=== PATIENT | female | born 1950 | race African-American/Black ===

== ENCOUNTER 2023-07-18 09:15 | Outpatient (REF) | payer MEDICARE, SELFPAY ==
--- NOTE | ~2023-07-18 | XR_ITS ---
EXAMINATION: XR KNEE, BILATERAL CLINICAL INFORMATION: Pain in bilateral knees. Radiopaque positioning sponge visible and sunrise views per technologist. COMPARISON: None available. TECHNIQUE: 3 views of each knee. FINDINGS: LEFT KNEE: Moderate joint effusion. Status post left knee total arthroplasty. Hardware appears intact. Alignment maintained. RIGHT KNEE: Moderate joint effusion. Status post right knee total arthroplasty. Hardware appears intact. Alignment maintained. There is asymmetric widening at the lateral aspect of the patellofemoral joint on the sunrise view. A small ossicle is seen anterior to the medial aspect of the patella on the sunrise view. XR/XR knee LT 3V IMPRESSION: 1. Status post bilateral knee total arthroplasty. Hardware appears intact. 2. Asymmetric widening at the lateral aspect of the right patellofemoral joint on the sunrise view. 3. Correlation with clinical exam and surgical history recommended.
--- NOTE | ~2023-07-18 | XR_ITS ---
EXAMINATION: XR KNEE, BILATERAL CLINICAL INFORMATION: Pain in bilateral knees. Radiopaque positioning sponge visible and sunrise views per technologist. COMPARISON: None available. TECHNIQUE: 3 views of each knee. FINDINGS: LEFT KNEE: Moderate joint effusion. Status post left knee total arthroplasty. Hardware appears intact. Alignment maintained. RIGHT KNEE: Moderate joint effusion. Status post right knee total arthroplasty. Hardware appears intact. Alignment maintained. There is asymmetric widening at the lateral aspect of the patellofemoral joint on the sunrise view. A small ossicle is seen anterior to the medial aspect of the patella on the sunrise view. XR/XR knee RT 3V IMPRESSION: 1. Status post bilateral knee total arthroplasty. Hardware appears intact. 2. Asymmetric widening at the lateral aspect of the right patellofemoral joint on the sunrise view. 3. Correlation with clinical exam and surgical history recommended.
== END 2023-07-18 09:16 | disposition home or self-care (01) ==
LOC: HO.HOSX 09:15
PROVIDERS: Visit Provider Orthopaedic Surgery
DX: M25.561 Pain in right knee (principal); M25.562 Pain in left knee
CPT/HCPCS: 73562; 99212

== ENCOUNTER 2023-07-18 11:19 | Outpatient (AMB) | payer MEDICARE, SELFPAY ==
--- NOTE | 2023-07-18 11:46 | MHC.OFFVIS ---
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 Wisdom. She reports she had surgery of Right knee was April of 2017 and Left knee in February of 2019 and would like to follow up. She states her knees are feeling stiff. She states she fell out of chair which caused some discomfort in her knees on 12/24/2022. She denies any other injuries. She denies any locking or giving way. Allergies aspirin Allergy (Unknown, Verified 07/26/16 00:00) ofloxacin Allergy (Unknown, Verified 07/26/16 00:00) penicillin V Allergy (Unknown, Verified 07/26/16 00:00) Sulfa (Sulfonamide Antibiotics) Allergy (Unknown, Verified 07/26/16 00:00) bees Allergy (Unknown, Uncoded 07/26/16 00:00) Codeine Phosphate Allergy (Unknown, Uncoded 07/26/16 00:00) dust Allergy (Unknown, Uncoded 07/26/16 00:00) peanuts Allergy (Unknown, Uncoded 07/26/16 00:00) pollen Allergy (Unknown, Uncoded 07/26/16 00:00) shell fish Allergy (Unknown, Uncoded 07/26/16 00:00) Medication List - Last Reconciled 07/18/23 by John Wisdom MD ergocalciferol (vitamin D2) 1,250 mcg PO QWEEK hydrochlorothiazide 12.5 mg PO DAILY levothyroxine (Levoxyl) 88 mcg PO DAILY pantoprazole 40 mg PO DAILY [facility] Surgical History (Updated 07/18/23 @ 12:11 by More Benjamin CMA) Hx of right knee surgery (~04/2017) Hx of left knee surgery (~03/08/19) Social History (Updated 07/18/23 @ 12:07 by More Benjamin CMA) Patient Tobacco Use Status: Never used Tobacco Physical Exam Const Other: Well-nourished well-developed very friendly female awake alert and oriented x3 in no acute distress Extrem Other: Bilateral lower extremity examination shows good capillary refill, no skin lesions noted, normal sensation light touch Bilateral knee examination shows that the surgical incisions are well healed, no erythema, full active extension and flexion to 120 degrees, her patellae track well, no instability Results Reviewed Results Reviewed: X-rays of the patient's bilateral knee show total knee arthroplasties in good position with no signs of loosening, no acute bony abnormalities Assessment & Plan Assessment & Plan (1) Right knee pain: Code(s): M25.561 - Pain in right knee (2) Left knee pain: Code(s): M25.562 - Pain in left knee Plan Ms. Tyler continues to do well after undergoing bilateral total knee replacement surgeries in spite of her fall last year. She does not appear to have suffered any damage to her total knee arthroplasties. She will continue with her home exercise program. She does know to take antibiotics before any dental work. She will contact me prior to her annual follow-up appointment should any questions or concerns arise. Feel free to call me at any time should questions regarding her orthopedic management arise. I spent 22 minutes in reviewing the patient's records and imaging studies, seeing the patient and documenting in the medical record. Orders: Orders XR knee LT 3V Today M25.562 - Pain in left knee XR knee RT 3V Today M25.561 - Pain in right knee Coding Level of Care Code Est Pt Level 2 (87604) Diagnoses Right knee pain M25.561 Left knee pain M25.562
== END 2023-07-18 12:34 | disposition home or self-care (01) ==
PROVIDERS: PCP Internal Medicine; Visit Provider Orthopaedic Surgery
DX: M25.561 Pain in right knee (principal); M25.562 Pain in left knee; Z96.653 Presence of artificial knee joint, bilateral; W19.XXXA Unspecified fall, initial encounter
CPT/HCPCS: 99213

== ENCOUNTER 2025-05-06 11:05 | Outpatient (AMB) | payer MEDICARE, SELFPAY ==
--- OUTSIDE RECORDS SUMMARY | 2023-12-07 10:30 | XMS_ITS ---
Author Organization [facility], [place] Address [address] [facility] [facility] [address] [place] [address] Care Team Providers Care Crime Scene Evidence Technician Name Role Phone Migration, Provider Unavailable Unavailable REASON FOR VISIT Follow-up Appt Encounters Encounter Location Date Provider Diagnosis [facility], [address] [place] [phone] 12/07/2023 Provider Migration Plan Of Treatment No Information Progress Notes * KRYSTAL LEONB:1950 ( 74 yo Other)Acc No.[id number]:12/07/2023 Progress Notes Patient: Rosaura CARDOZAPAVEL ROSS Provider: Kadie Guerrero :1950 A ge:73 Y S ex:Unknown Date:12/07/2023 Address:[address] [place], [place] [phone] Subjective: * Chief Complaints: * F ollow-up Appt * Ocular Surgical History: Objective: Vision Examination: * Electronic signature of Prov ider Migration on 05/06/2025 at 02:35 PM EST Sign off status: Pending * Provider: Kadie morales Migration Date: 0 12/07/2023 Generated for Dolores kay/Jorge/eTransmitting on: 1 07/07/2024 02:35 PM EST
--- OUTSIDE RECORDS SUMMARY | 2024-04-29 05:45 | XMS_ITS ---
Author Organization [facility], [place] Address [address] [facility] [address] [place] [address] Care Team Providers Care Line Controller Name Role Phone Migration, Provider Unavailable Unavailable REASON FOR VISIT Follow-up Appt Encounters Encounter Location Date Provider Diagnosis [facility], [address] [place] [phone] 04/29/2024 Provider Migration Plan Of Treatment No Information Progress Notes * KRYSTAL LEONB:1950 ( 74 yo Other)Acc No.[id number]:04/29/2024 Progress Notes Patient: Rosaura CARDOZAVANDANA PAVEL Provider: Kadie Guerrero :1950 A ge:73 Y S ex:Unknown Date:04/29/2024 Address:[address] [place], [place] [phone] Subjective: * Chief Complaints: * F ollow-up Appt * Ocular Surgical History: Objective: Vision Examination: * Electronic signature of Prov ider Migration on 05/06/2025 at 02:35 PM EST Sign off status: Pending * Provider: Kadie morales Migration Date: 06/30/2023 Generated for Dolores kay/Jorge/eTransmitting on: 07/07/2024 02:35 PM EST
--- OUTSIDE RECORDS SUMMARY | 2024-05-02 05:45 | XMS_ITS ---
Author Organization [facility], [place] Address [address] [facility] [address] [place] [address] Care Team Providers Care Bisque Kiln Placer Name Role Phone Migration, Provider Unavailable Unavailable REASON FOR VISIT Follow-up Appt Encounters Encounter Location Date Provider Diagnosis [facility], [address] [place] [phone] 05/02/2024 Provider Migration Plan Of Treatment No Information Progress Notes * KRYSTAL LEONB:1950 ( 74 yo Other)Acc No.[id number]:05/02/2024 Progress Notes Patient: Rosaura CARDOZAVANDANA PAVEL Provider: Kadie Guerrero :1950 A ge:73 Y S ex:Unknown Date:05/02/2024 Address:[address] [place], [place] [phone] Subjective: * Chief Complaints: * F ollow-up Appt * Ocular Surgical History: Objective: Vision Examination: * Electronic signature of Prov ider Migration on 05/06/2025 at 02:36 PM EST Sign off status: Pending * Provider: Kadie morales Migration Date: 07/03/2023 Generated for Dolores kay/Jorge/eTransmitting on: 07/07/2024 02:36 PM EST
--- OUTSIDE RECORDS SUMMARY | 2024-08-28 08:00 | XMS_ITS ---
Author Organization [facility], [place] Address [address] [facility] [place] [facility] [address] [place] [address] Care Team Providers Care Field Assembly Supervisor Name Role Phone Julian Chin Unavailable [phone] REASON FOR VISIT Follow-up Appt Encounters Encounter Location Date Provider Diagnosis [facility], [address] [place] [phone] 08/28/2024 Julian Chin Plan Of Treatment No Information Progress Notes * KRYSTAL LEONB:1950 ( 74 yo Other)Acc No.[id number]:08/28/2024 Progress Notes Patient: PAVEL GUSTAFSON Provider: Jd PRATT :1950 A ge:74 Y S ex:Unknown Date:08/28/2024 Address:[address] [place], [place] [phone] Subjective: * Chief Complaints: * F ollow-up Appt * Ocular Surgical History: Objective: Vision Examination: * Electronic signature of Luis Chin PA-C on 05/06/2025 at 02:35 PM EST Sign off status: Pending * Provider: Jd PRATT Date: 0 08/28/2024 Generated for Alinai eliza/Jorge/eTransmitting on: 1 07/07/2024 02:35 PM EST
--- OUTSIDE RECORDS SUMMARY | 2024-09-11 08:00 | XMS_ITS ---
Author Organization [facility], [place] Address [address] [facility] [address] [place] [address] Care Team Providers Care Day Care Worker Name Role Phone Julian Chin Unavailable [phone] REASON FOR VISIT Follow-up Appt Encounters Encounter Location Date Provider Diagnosis [facility], [address] [place] [phone] 09/11/2024 Julian Chin Plan Of Treatment No Information Progress Notes * KRYSTAL LEONB:1950 ( 74 yo Other)Acc No.[id number]:09/11/2024 Progress Notes Patient: PAVEL GUSTAFSON Provider: Jd PRATT :1950 A ge:74 Y S ex:Unknown Date:09/11/2024 Address:[address] [place], [place] [phone] Subjective: * Chief Complaints: * F ollow-up Appt * Ocular Surgical History: Objective: Vision Examination: * Electronic signature of Luis Chin PA-C on 05/06/2025 at 02:36 PM EST Sign off status: Pending * Provider: Jd PRATT Date: 0 09/11/2024 Generated for Alinai ng/Fajune/eTransmitting on: 1 07/07/2024 02:36 PM EST
--- OUTSIDE RECORDS SUMMARY | 2024-09-25 08:00 | XMS_ITS ---
Author Organization [facility], [place] Address [address] [address] [place] [address] Care Team Providers Care Barrel Charrer Helper Name Role Phone Julian Chin Unavailable [phone] REASON FOR VISIT Follow-up Appt Encounters Encounter Location Date Provider Diagnosis [facility], [address] [place] [phone] 09/25/2024 Julian Chin Plan Of Treatment No Information Progress Notes * KRYSTAL LEONB:1950 ( 74 yo Other)Acc No.[id number]:09/25/2024 Progress Notes Patient: PAVEL GUSTAFSON Provider: Jd PRATT :1950 A ge:74 Y S ex:Unknown Date:09/25/2024 Address:[address] [place], [place] [phone] Subjective: * Chief Complaints: * F ollow-up Appt * Ocular Surgical History: Objective: Vision Examination: * Electronic signature of Luis Chin PA-C on 05/06/2025 at 02:35 PM EST Sign off status: Pending * Provider: Jd PRATT Date: 0 09/25/2024 Generated for Alinai ng/Fajune/eTransmitting on: 1 07/07/2024 02:35 PM EST
--- NOTE | 2025-05-06 11:13 | MHC.OFFVIS ---
Intake Visit Reasons: Migranes Allergies aspirin Allergy (Unknown, Verified 05/02/25 13:35) Unknown doxycycline Allergy (Unknown, Verified 05/02/25 13:35) Unknown ofloxacin Allergy (Unknown, Verified 05/02/25 13:35) Unknown penicillin V Allergy (Unknown, Verified 05/02/25 13:35) Unknown Sulfa (Sulfonamide Antibiotics) Allergy (Unknown, Verified 05/02/25 13:35) Unknown bees Allergy (Unknown, Uncoded 05/02/25 13:35) Unknown Codeine Phosphate Allergy (Unknown, Uncoded 05/02/25 13:35) Unknown dust Allergy (Unknown, Uncoded 05/02/25 13:35) Unknown peanuts Allergy (Unknown, Uncoded 05/02/25 13:35) Unknown pollen Allergy (Unknown, Uncoded 05/02/25 13:35) Unknown shell fish Allergy (Unknown, Uncoded 05/02/25 13:35) Unknown Medication List - Last Reconciled 05/06/25 by Zulema Centeno MD ergocalciferol (vitamin D2) units PO .weekly hydrochlorothiazide 12.5 mg PO DAILY levothyroxine (Levoxyl) 88 mcg PO DAILY pantoprazole 40 mg PO DAILY HPI Comments Details: This is a 74-year-old woman with history of Graves disease treated with ablation currently on replacement therapy, mild hypertension, osteoarthritis status post bilateral total knee replacements in 2017 and 2019, migraine headaches since childhood that occur between 4 to 6 times a year. The migraines are associated with a visual aura. She also gets ocular migraines without headache. The ocular migraines occur every 1-2 months and last 15 minutes. She has had multiple eye exams which are normal. For her migraines she takes 500 mg of extra strength Tylenol and goes to sleep in the headache is gone. She is very sensitive to all medications and can not use most medicines and has found the Tylenol to be effective and even in the 500 mg of Tylenol knocks her out and she is sleeping. She has a lot of medication sensitivity. She is status post hysterectomy and cholecystectomy. There is a family history of thyroid disorder and migraines on her mother's side and bronchial asthma in the father side. [facility] Medical History (Updated 05/06/25 @ 11:29 by Zulema Centeno MD) Graves disease Migraine Surgical History (Updated 07/18/23 @ 12:11 by More Benjamin CMA) Hx of right knee surgery (~04/2017) Hx of left knee surgery (~03/08/19) Social History (Updated 07/18/23 @ 12:07 by More Benjamin CMA) Patient Tobacco Use Status: Never used Tobacco Review of Systems Const Reports headache(s) Eyes Details: Ocular migraine with flashing multi colored lights ENT Reports otalgia, Reports headache(s) and Reports sinus pain GI Reports abdominal pain Neuro Reports headache(s) Physical Exam Neuro Other: Mini Mental Status Exam Level of Consciousness:?Alert.? Orientation:?Knows correct year, month, date, day and season.?Knows correct city, county and state. Knows correct location and floor.? Registration:?Able to register 3 objects.? Attention:?Serial 7's performed?? accurately.? Recall:?Able to recall 3 out of 3 objects.? Language:?Normal spontaneous speech, fluency, repetition, naming, comprehension, reading, and writing.? ?? Total Score:?30/30.? Neurological Abnormal neurological findings:??None. ? Mental Status:?Alert and oriented X 3.?Normal attention, orientation, memory, and affect.? Cranial Nerves:?Pupils are equal, round and reactive to light. Fundoscopy shows normal disc bilaterally. External ocular muscles are intact. Visual stern are full, no ptosis. Face is symmetrical, no facial weakness or droop. Facial sensations are normal.? Tongue protrudes in midline. Palate elevates symmetrically. Shoulder?? shrugging is normal.? Motor Examination:?Normal muscle tone, bulk and strength.?No atrophy or fasciculations.?No drift of the extended upper extremities.?Deep tendon reflexes are 2+.?Plantars?? are flexor.? ?Motor Strength:? Proximal Muscles (out of 5):?5 Distal Muscles (out of 5):?5 Neck Flexors (out of 5):?5 Neck Extensors (out of 5):?5 Deltoid (out of 5):?5 Biceps (out of 5):?5 Triceps (out of 5):?5 Serratus Anterior (out of 5):?5 Wrist Extensors (out of 5):?5 APB (out of 5):?5 Finger Spread (out of 5):?5 Ileopsoas (out of 5):?5 Quadriceps (out of 5):?5 Hamstrings (out of 5):?5 Tibialis Anterior (out of 5):?5 Peronei (out of 5):?5 EDB (out of 5):?5 Gastrocnemius (out of 5):?5 Straight Leg Raising:?90 degrees.? Sensory Exam:?Normal light touch,?? temperature, pinprick, vibration and joint-position sensations.?Rhomberg?? sign is absent.? Coordination:?No ataxia,?no titubation,?uammzm-zj-byie, tnrw-ebzr-vamu test, and rapid alternating?? movements were normal.? Gait Exam:?Normal. ? Cerebellar Signs:?Pdfsru-ce-ynah and?? qbmw-lu-sntv is normal.?No dysdiadochokinesia.? Extrapyramidal System:?No tremor or?rigidity, normal facial expressions.?No bradykinesia. No bradyphrenia. Normal arm swing and posture. No propulsion or retropulsion.? Speech:?Normal,?no dysphasia or dysarthria.? General Examination GENERAL APPEARANCE:??Morbid obesity, in no acute distress?.? ?? HEAD:??normocephalic,?atraumatic.? ?? EYES:??sclera non-icteric,?conjunctiva clear.? ?? EARS:??auditory canal clear,?tympanic membrane intact, clear.? ?? NOSE:??no lesions.? ?? ORAL CAVITY:??gums normal,?mucosa moist,?no lesions.? ?? THROAT:??clear.? ?? NECK/THYROID:??no cervical lymphadenopathy,?thyroid normal,?neck supple, full range of motion,?no carotid bruit.? ?? SKIN:??no rashes,?no significant?? birthmarks.? ?? HEART:??S1, S2 normal,?no murmurs? ?? LUNGS:??clear anteriorly and ?posteriorly? ?? CHEST:??no gross rib deformity,?clear to ?auscultation.? ?? BACK:??normal exam of spine.? ?? MUSCULOSKELETAL:??normal.? ?? EXTREMITIES:??no edema.? ?? PERIPHERAL PULSES:??normal.? ?? PSYCH:??alert, oriented,?cognitive function intact,?cooperative with exam?,?alert,?? oriented,?cognitive ?function intact,?cooperative with exam.? Assessment & Plan Assessment & Plan (1) Migraine: Code(s): G43.909 - Migraine, unspecified, not intractable, without status migrainosus Category: Medical Plan Continue Tylenol 500mg prn. Call if there is a change in her migraine frequency or severity Coding Level of Care Code New Pt Level 5 (88418) Diagnoses Migraine G43.909
--- OUTSIDE RECORDS SUMMARY | 2025-05-06 14:36 | XMS_ITS | Clinical Summary ---
Author Organization [facility] Address [address] [place] [address] Phone Care Team Providers Care Paper Machine Tender Name Role Phone Radha Garcia ESPERANZA Primary Care Provider Encounters Date Type Department Care Team Description 02/05/2025 8:53 AM EDT - 02/05/2025 11:59 PM EDT Hospital Encounter [facility] Bone Density [address] [place] [phone] Postmenopausal Discharge Disposition: Home or Self Care from Last 3 Months Surgical History Surgery Date Site/Laterality Comments HYSTERECTOMY PROCEDURE: HISTORICAL HYSTERECTOMY TONSILLECTOMY PROCEDURE: HISTORICAL TONSILLECTOMY TOTAL KNEE ARTHROPLASTY Right PROCEDURE: [place] ARTHRP KNE CONDYLE&PLATU MEDIAL&LAT COMPARTMENTS CHOLECYSTECTOMY PROCEDURE: [place] LAPAROSCOPY SURG CHOLECYSTECTOMY TONSILLECTOMY PROCEDURE:TONSILLECTOMY HYSTERECTOMY PROCEDURE:HYSTERECTOMY JOINT REPLACEMENT PROCEDURE:JOINT REPLACEMENT Medical History Medical History Date Comments Cervical cancer ([facility]/HCC V24, [facility] V28) DX:Cervical cancer (HCC) Arrhythmia DX:Arrhythmia Heart murmur DX:Heart murmur Hypercholesterolemia DX:Hypercho lesterolemia Essential hypertension DX:Essent ial hypertension Colitis DX:Colitis Diverticulitis DX:Diverticuliti s Esophageal reflux DX:Esophageal reflux Osteoarthritis DX:Osteoarthriti s Endocrine problem DX:Endocrine p roblem Hypothyroidism DX:Hypothyroidis m Graves disease DX:Graves diseas e Hypertension DX:Hypertension Arthritis DX:Arthritis Family History Medical History Relation Name Comments Breast cancer Niece Relation Name Status Comments Niece Social History Tobacco Use Types Packs/Day Years Used Date Smoking Tobacco: Never Assessed Alcohol Use Standard Drinks/Week Comments No 0 (1 standard drink = 0.6 oz pur e alcohol) Comments No Sex and Gender Information Value Date Recorded Sex Assigned at Not on file Legal Sex Female 11:58 PM EST Gender Identity Not on file Sexual Orientation Not on file Obstetrics History Para Term AB IAB SAB Ectopic Multiple Livin g Live Births 6 Last Filed Vital Signs Vital Sign Reading Time Taken Comments Blood Pressure 180/90 10/20/2023 5:17 PM EDT Pulse 86 10/20/2023 5:17 PM EDT Temperature - - Respiratory Rate - - Oxygen Saturation - - Inhaled Oxygen Concentration - - Weight 108 kg (238 lb) 12/23/2024 10:28 AM EDT Height 157.5 cm (5' 2 ) 12/23/2024 10:28 AM EDT Body Mass Index 43.53 12/23/2024 10:28 AM EDT Plan of Treatment Health Maintenance Due Date Last Done Comments Colorectal Cancer Screening: Colonoscopy 1950 Pneumococcal Vaccine: 50+ Years (1 of 1 - PCV) 2002 RSV Immunization Adult Patients (1 - Risk 50-74 years 1-dose series) 2002 Zoster Vaccines (1 of 2) 2002 Falls Risk Assessment 04/24/2022 Hepatitis C Screening 04/24/2022 Medicare Annual Wellness Visit 04/24/2022 Social Influencers of Health Screening 04/24/2022 Depression Screening 05/22/2024 COVID-19 Vaccine ( season) 2025 05/04/2021, 08/21/2020, 07/31/2020 Influenza Vaccine (#1) 2025 , 03/29/2023, 03/26/2021, Additional history exists Breast Cancer Screening 12/23/2026 12/24/19 25, 06/29/2023, 05/12/2022, Additional history exists Cholesterol Screening (Lipid Panel) 12/02/2029 12/02/2024, 12/02/2024 DTaP,Tdap,and Td Vaccines (2 - Td or Tdap) 06/17/2034 06/17/2024 Osteoporosis Screening (Bone Density Screening) 02/05/2035 02/05/2025, 02/11/2021 HIB Vaccines Aged Out No longer eligi ble based on patient's age to complete this topic HPV Vaccines Aged Out No longer eligi ble based on patient's age to complete this topic Hepatitis A Vaccines Aged Out No long er eligible based on patient's age to complete this topic Hepatitis B Vaccines Aged Out No long er eligible based on patient's age to complete this topic IPV Vaccines Aged Out No longer eligi ble based on patient's age to complete this topic MMR Vaccines Aged Out No longer eligi ble based on patient's age to complete this topic Meningococcal ACWY Vaccine Aged Out N o longer eligible based on patient's age to complete this topic Meningococcal B Vaccine Aged Out No l onger eligible based on patient's age to complete this topic RSV Immunization Patients Under 20 months Aged Out No longer eligible based on patient's age to complete this topic Varicella Vaccines Aged Out No longer eligible based on patient's age to complete this topic Procedures Procedure Name Priority Date/Time Associated Diagnosis Comments BD BONE DENSITY DXA AXIAL SKELETON Routine 02/05/2025 9:23 AM EDT Postmenopausal MG MAMMO DIGITAL SCREENING W KATIE BILAT Routine 12/23/2024 10:30 AM EDT Encounter for screening mammogram for malignant neoplasm of breast from Last 3 Months or Most Recently Relevant to Health Maintenance Results * BD Bone Density DXA Axial Skeleton (02/05/2025 9:23 AM EDT) Anatomical Region Laterality Modality Wrist, Hip, L-spine Bone Densito metry 02/05/2025 4:09 PM EDT Impressions 02/05/2025 4:12 PM EDT Osteopenia. Teleerrol PRATT ([id number]) -------- FINAL REPORT -------- Dictated By: Kyara Patel Dictated Date: 02/05/2025 16:09 ET Assigned Physician: Kyara Patel Reviewed and Electronically Signed By: Kyara Patel Signed Date: 02/05/2025 16:12 ET Workstation ID: [id number] Transcribed By: Self Edit Transcribed Date: 02/05/2025 16:09 ET Narrative 02/05/2025 4:12 PM EDT History: Low estrogen state due to menopause. Personal history of fracture. Vitamin D deficiency. Graves' disease. Comparison: 02/11/21 Findings: Bone densitometry is performed utilizing dual energy x-ray absorptiometry (DXA) in the [employer] Prodigy unit. The lumbar spine and proximal femora are evaluated in the AP projection. The FRAX questionaire was completed. The results indicate low bone mass (osteopenia), with bilateral femoral neck T- scores of -1.2. The Z score is -1.1. There has been a small, statistically significant decrease in bone mineral density in the right total femur since the previous study. The detailed DEXA report will be mailed to the referring physician's office. DualFemur FRAX: 10-year Probability of Fracture: Major Osteoporotic 5.9 percent Hip 0.7 percent. Procedure Note Kyara Patel MD - 02/05/2025 History: Low estrogen state due to menopause. Personal history offracture. Vitamin D deficiency. Graves' disease. Comparison: 02/11/21 Findings: Bone densitometry is performed utilizing dual energy x-ray absorptiometry(DXA) in the [employer] Prodigy unit. The lumbar spine and proximal femora areevaluated in the AP projection. The FRAX questionaire was completed. The results indicate low bone mass (osteopenia), with bilateral femoralneck T- scores of -1.2. The Z score is -1.1. There has been a small, statistically significant decrease in bone mineraldensity in the right total femur since the previous study. The detailedDEXA report will be mailed to the referring physician's office. DualFemur FRAX: 10-year Probability of Fracture: Major Osteoporotic 5.9percent Hip 0.7 percent. IMPRESSION: Osteopenia. Telerad SANTA ([id number]) -------- FINAL REPORT -------- Dictated By: Kyara Patel Dictated Date: 02/05/2025 16:09 ET Assigned Physician: Kyara Patel Reviewed and Electronically Signed By: Kyara Patel Signed Date: 02/05/2025 16:12 ET Workstation ID: [id number] Transcribed By: Self Edit Transcribed Date: 02/05/2025 16:09 ET Chris Schmitt MD IMG DXA PROCEDURES Final Result * MG Mammo Digital Screening w Katie bilat (12/23/2024 10:30 AM EDT) Anatomical Region Laterality Modality Breast Bilateral Mammography 12/23/2024 11:1 7 AM EDT Impressions 12/23/2024 11:22 AM EDT No mammographic evidence of malignancy. A negative mammogram in the presence of a clinically suspicious palpable abnormality does not preclude the possibility of malignancy or alter the indications for biopsy. PQRI CPT II 3342F Code 57110, 56722 PQRI 225 CPT II 7025F TISSUE DENSITY: The breasts are almost entirely fatty. (BI-RADS Category A) IMPRESSION: Benign. BI-RADS CATEGORY: 2 - BENIGN RECOMMENDATION: Screening bilateral mammogram is recommended in 1 year. Mammo Location: [facility], [address] [place] [address] -------- FINAL REPORT -------- Dictated By: Kenny Mcadams Dictated Date: 12/23/2024 11:17 ET Assigned Physician: Kenny Mcadams Reviewed and Electronically Signed By: Kenny Mcadams Signed Date: 12/23/2024 11:22 ET Workstation ID: [id number] Transcribed By: Self Edit Transcribed Date: 12/23/2024 11:17 ET Narrative 12/23/2024 11:22 AM EDT CLINICAL: The patient is a 74 years Female presenting for routine screening mammography. COMPARISON: Most recently 06/29/2023 and most remotely 08/06/2015. TECHNIQUE: Full-field digital mammography of the breasts bilaterally consisting of tomosynthesis in MLO and CC projection is performed in the [employer] 2000-D unit. Computer aided detection utilizing the iCAD system was utilized. FINDINGS: The breasts are again seen to be largely fatty replaced. Vascular calcifications are again noted bilaterally. There is no suspicious cluster of microcalcifications, mass, or area of architectural distortion. There is no skin thickening or nipple retraction. Procedure Note Kenny Mcadams MD - 12/23/2024 CLINICAL: The patient is a 74 years Female presenting for routinescreening mammography. COMPARISON: Most recently 06/29/2023 and most remotely 08/06/2015. TECHNIQUE: Full-field digital mammography of the breasts bilaterallyconsisting of tomosynthesis in MLO and CC projection is performed in the[employer] 2000-D unit. Computer aided detection utilizing the [employer]system was utilized. FINDINGS: The breasts are again seen to be largely fatty replaced.Vascular calcifications are again noted bilaterally. There is nosuspicious cluster of microcalcifications, mass, or area of architecturaldistortion. There is no skin thickening or nipple retraction. IMPRESSION: No mammographic evidence of malignancy. A negative mammogram in the presence of a clinically suspicious palpableabnormality does not preclude the possibility of malignancy or alter theindications for biopsy. PQRI CPT II 3342F Code 79862, 87367 PQRI 225 CPT II 7025F TISSUE DENSITY: The breasts are almost entirely fatty. (BI-RADS CategoryA) IMPRESSION: Benign. BI-RADS CATEGORY: 2 - BENIGN RECOMMENDATION: Screening bilateral mammogram is recommended in 1 year. Mammo Location: [facility], [address] [place] [id number] -------- FINAL REPORT -------- Dictated By: Kenny Mcadams Dictated Date: 12/23/2024 11:17 ET Assigned Physician: Kenny Mcadams Reviewed and Electronically Signed By: Kenny Mcadams Signed Date: 12/23/2024 11:22 ET Workstation ID: [id number] Transcribed By: Self Edit Transcribed Date: 12/23/2024 11:17 ET Chris Schmitt MD IMG BI PROCEDURES Final Result from Last 3 Months or Most Recently Relevant to Health Maintenance Insurance BLUE CROSS - [place] MEDICARE ADVANTAGE Advance Directives Documents on File Type Date Recorded 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 Health Care Decision (hx) 04/24/2017 AD NAQVI DIRECTIVE Health Care Decision (hx) 04/24/2017 AD NAQVI DIRECTIVE Health Care Decision (hx) 04/24/2017 AD NAQVI DIRECTIVE Health Care Decision (hx) 04/24/2017 AD NAQVI DIRECTIVE Health Care Decision (hx) 04/24/2017 AD NAQVI DIRECTIVE Health Care Decision (hx) 04/24/2017 AD NAQVI DIRECTIVE Health Care Decision (hx) 04/24/2017 AD NAQVI DIRECTIVE Health Care Decision (hx) 04/24/2017 AD ANQVI DIRECTIVE Health Care Decision (hx) 04/24/2017 AD NAQVI DIRECTIVE Care Teams Paper Machine Tender Relationship Specialty Start Date End Date Radha Garcia FNP [address] [place] [id number] PCP - General Family Medicine 12/23/24
--- OUTSIDE RECORDS SUMMARY | 2025-05-06 14:36 | XMS_ITS | Clinical Summary ---
Author Organization [facility] Prior to 10/19/24 Address [address] [place] [address] Care Team Providers Care Clothing Cutter Name Role Phone Holden Mcgraw MD Primary Care Provider [phone] Allergies Active Allergy Reactions Criticality Noted Date Comments Ibuprofen 03/07/2017 Amlodipine 01/20/2020 Aspirin 03/07/2017 Cefaclor 03/07/2017 Cefuroxime 03/07/2017 Cephalosporins 01/20/2020 Ciprofloxacin-Hydrocortisone 020 Codeine 03/07/2017 Doxycycline 03/07/2017 Dust 01/20/2020 Ofloxacin 03/07/2017 Cephalexin 03/07/2017 Atorvastatin 03/07/2017 Lisinopril 01/20/2020 Other 01/20/2020 Peanut (Diagnostic) 01/20/2020 Penicillins 01/20/2020 Prednisone 03/07/2017 Conj Estrog-Medroxyprogest Evan 03/07 Shellfish Allergy 01/20/2020 Sulfa Antibiotics 03/07/2017 Levothyroxine 03/07/2017 Tuberculin, Ppd 01/20/2020 Medications Medication Sig Dispensed Refills Start Date End Date Status clotrimazole-betam ethasone (LOTRISONE) cream apply to AFFECTED AND SURROUNDING AREA OF SKIN topically twice a ... (REFER TO PRESCRIPTION NOTES). 0 03/03/2017 Active ergocalciferol (VITAMIN D2) capsule 30615 units 0 01/26/2017 Active hydrochlorothiazid e (HYDRODIURIL) tablet 25 mg take 1 tablet by mouth once daily 0 02/20/2017 Active levothyroxine (SYNTHROID, LEVOXYL) tablet 88 mcg 0 01/17/2017 Active colchicine (MITIGARE) 0.6 MG capsule TK 1 T PO BID 0 01/14/2020 Active acetaminophen (TYLENOL EXTRA STRENGTH) 500 MG tablet Daily as needed for Moderate Pain 0 04/04/2017 Active cetirizine (ZyrTEC) 10 MG tablet 0 03/07/2022 Active Cholecalciferol 125 MCG (5000 UT) capsule Take by mouth. 0 Active azithromycin (ZITHROMAX) 250 MG tablet Take 2 tabs 1 hour prior to dental appointment 10 tablet 2 05/12/2022 Active Active Problems Problem Noted Date Diagnosed Date Postop check 03/22/2019 Social History Tobacco Use Types Packs/Day Years Used Date Smoking Tobacco: Never Assessed Sex and Gender Information Value Date Recorded Sex Assigned at Not on file Gender Identity Not on file Sexual Orientation Not on file Job Start Date Occupation Industry Not on file Not on file Not on file Last Filed Vital Signs Vital Sign Reading Time Taken Comments Blood Pressure - - Pulse - - Temperature - - Respiratory Rate - - Oxygen Saturation - - Inhaled Oxygen Concentration - - Weight 104.3 kg (230 lb) 05/12/2022 10:56 AM EST Height 154.9 cm (5' 1 ) 05/12/2022 10:56 AM EST Body Mass Index 43.46 05/12/2022 10:56 AM EST Plan of Treatment Health Maintenance Due Date Last Done Comments Hepatitis C Screening 1950 COVID-19 Vaccine (#1) 02/15/1951 Depression Screening 1964 BMI Counseling 1970 Preventative Health Evaluation 1970 DTap / Tdap / Td (1 - Tdap) 08/16/1971 Colon Cancer Screening (Colonoscopy) 1997 Breast Cancer Screening (Mammogram) 2002 Shingrix-Zoster Vaccine (1 of 2) 2002 Fall Risk Assessment 2017 Osteoporosis Screening (DEXA Scan) 2017 Pneumococcal Vaccine (1 of 1 - PCV) 2017 Influenza Vaccine (#1) 2025 RSV Adult > 60+ Yrs or Pregn ant (1 - 1-dose 75+ series) 08/16/2027 Hepatitis B Vaccines Aged Out No long er eligible based on patient's age to complete this topic RSV Ped < 20 months Aged Out No longe r eligible based on patient's age to complete this topic Care Teams Clothing Cutter Relationship Specialty Start Date End Date Holden Mcgraw MD [address] [place] [address] PCP - General Internal Medicine 09/25/17
--- OUTSIDE RECORDS SUMMARY | 2025-05-06 14:36 | XMS_ITS | Patient Health Record ---
Author Organization [facility] [place] Address [address] [facility] [address] [place] [address] Care Team Providers Care Dispatcher Refinery Name Role Phone Julian Chin Unavailable [phone] Reason For Referral No Information Encounters Encounter Location Date Provider Diagnosis [facility] [place] [address] [phone] 08/28/2024 Julian Chin [facility] [place] [address] [phone] 09/11/2024 Julian Chin [facility] [place] [address] [address] 09/25/2024 Julian Chin Plan Of Treatment No Information Insurance Providers Payer Name Payer Address Payer Phone Subscriber Number Group Number Insured Name Patient Relationship to Insured Coverage Start Date Coverage End Date [facility] Advantage [facility] [address] [place] [address] [id number] PAVEL LEON Self - patient is the insured
--- OUTSIDE RECORDS SUMMARY | 2025-05-06 14:36 | XMS_ITS ---
Author Name [facility] Organization Unknown History of Medication Use Medication Directions Dispensed Refills Start Date End Date Status fluconazole 150 mg tablet TAKE 1 TABLET BY MOUTH EVERY DAY FOR 2 DAYS 03/22/20 23 completed hydrochlorothiazide 25 mg tablet TAKE 1 TABLET BY MOUTH EVERY DAY 03/22/20 23 completed losartan 50 mg-hydrochlorothiazide 12.5 mg tablet TAKE 1 TABLET BY MOUTH EVERY DAY 03/22/20 23 completed azithromycin 250 mg tablet TAKE 2 TABS 1 HOUR PRIOR TO DENTAL APPOINTMENT active ergocalciferol (vitamin D2) 1,250 mcg (50,000 unit) capsule TAKE 1 CAPSULE BY MOUTH ONCE A WEEK *N/C* active hydrochlorothiazide 12.5 mg tablet TAKE 1 TABLET BY MOUTH EVERY DAY *ACCORD MANUFATURER ONLY* active Levoxyl 88 mcg tablet TAKE 1 TABLET BY MOUTH EVERY DAY active Allergies Allergen Reaction Severity Comment Documented Date Source Statu s FLOXIN ENS_AONECT LISINOPRIL ENS_AONECT Encounters Encounter Type Encounter Reason Primary Diagnosis Location Date Ambulatory [facility] 03/22/2023 Ambulatory [facility] 03/22/2023 Ambulatory [facility] 03/22/2023 Ambulatory [facility] [place] 03/21/2023 Ambulatory [facility] 09/29/2022 Ambulatory [facility] [place] 09/29/2022
--- OUTSIDE RECORDS SUMMARY | 2025-05-06 14:36 | XMS_ITS | Clinical Summary ---
Author Organization [facility] Address [address] [place] [phone] Phone Care Team Providers Care Selling Underwriter Name Role Phone Scot Mckeon MD Primary Care Provider [phone] Allergies Active Allergy Reactions Criticality Noted Date Comments Amlodipine Other (See Comments) 01/20/2020 Aspirin Shortness Of Breath High 03/07/2017 Cephalexin Hives Medium 03/07/2017 Codeine Hives High 10/29/1977 Colchicine High 12/02/2024 Other Reaction(s): bradycardia Doxycycline Other (See Comments),Shortness Of Breath High 03/07/2017 House Dust 01/20/2020 Ofloxacin Other (See Comments) 03/07/2017 Peanut Shortness Of Breath High 11/30/2006 Penicillins Hives Medium 01/20/2020 Prednisone Rash High 03/07/2017 Shellfish Derived Hives High 01/20/2020 Nzycjhu-Biq-Llj Reductase Inhibitors Myalgia,Other (See Comments) High 03/07/2017 Sulfa (Sulfonamide Antibiotics) 03/07/2017 Tuberculin, Purified Protein Derivative 01/20/2020 Other Reaction(s): Not available Medications ergocalciferol (DRISDOL) 50,000 unit capsule Take 50,000 Units by mouth once a week. Active cetirizine (ZYRTEC) 10 MG tablet Take 5 mg by mouth as needed for allergies. Active acetaminophen (TYLENOL EXTRA STRENGTH) 500 MG tablet Take 500 mg by mouth as needed. Active clotrimazole (LOTRIMIN) 1 % cream APPLY CREAM BY TOPICAL ROUTE , 2 TIMES PER DAY Active hydroCHLOROthia zide 12.5 MG tablet Take 12.5 mg by mouth daily. 01/26/2025 Active LEVOXYL 88 mcg tablet Take 88 mcg by mouth daily. 01/23/2025 Active Active Problems Problem Noted Date Diagnosed Date Postablative hypothyroidism 04/29/2025 Assessment & Plan (04/29/2025 1:35 PM EST): Based on elevated TSH she is possibly in a subclinical hypothyroid state but I do not know because I do not have a free T4 level. She does have some findings associated with hypothyroidism. However before I change the dose of Levoxyl I think we should repeat the thyroid functions including a free T4 level. She can do this today in the lab downstairs. I told her thyroid function studies do not have to be done fasting. However they should be done at least 2 hours after levothyroxine administration is taken. She has been taking her medications without fail and she is taking it correctly. I would like her to obtain lab work today and prior to the follow-up visit. I will review her lab work and if the TSH remains elevated then we can increase the dose either to 100 or 112 mcg. Encounters Date Type Department Care Team Description 04/29/2025 1:00 PM EST Office Visit [facility] [address] [place] [address] [place] [address] Travis Kee, Postablative hypothyroidism (Primary Dx) from Last 3 Months Family History Medical History Relation Comments Asthma Father Osteoarthritis Mother Relation Status Comments Father Mother Social History Tobacco Use Types Packs/Day Years Used Date Smoking Tobacco: Never Smokeless Tobacco: Never Tobacco Cessation:Counseling Given: Not Answered Alcohol Use Standard Drinks/Week Comments Never 0 (1 standard drink = 0.6 oz pur e alcohol) Education Answer Date Recorded Are you interested in more education? Not on keturah e 12/27/2024 Are you concerned about learning? Not on file 12/27/2024 No 12/27/2024 No 12/27/2024 Digital Access Answer Date Recorded No 12/27/2024 No 12/27/2024 Reliable internet access at home? Not on file 12/27/2024 Device with a working camera? Not on file Comments Unknown Sex and Gender Information Value Date Recorded Sex Assigned at Female 12/27/2024 11:44 AM EDT Legal Sex Female 3:55 PM EDT Gender Identity Female 12/27/2024 11:44 AM EDT Sexual Orientation Straight 12/27/2024 11 :44 AM EDT Last Filed Vital Signs Vital Sign Reading Time Taken Comments Blood Pressure 144/80 04/29/2025 1:08 PM EST Pulse 81 04/29/2025 1:08 PM EST Temperature - - Respiratory Rate - - Oxygen Saturation 99% 04/29/2025 1:08 PM EST Inhaled Oxygen Concentration - - Weight 107 kg (235 lb 12.8 oz) 04/29/2025 1:08 P M EST Height 155.3 cm (5' 1.14 ) 04/29/2025 1:08 PM ES T Body Mass Index 44.35 04/29/2025 1:08 PM EST Plan of Treatment Upcoming Encounters Date Type Department Care Team (Late st Contact Info) Description 08/21/2025 12:10 PM EDT Office Visit [facility] [address] [place] [phone] Travis Kee DO [address] [place] [phone] [email or web address] Health Maintenance Due Date Last Done Comments Adult Td,Tdap Booster 1952 POTASSIUM LEVEL 1952 DEPRESSION SCREENING 1964 HEPATITIS C SCREENING 1970 COLOGUARD 1997 COLONOSCOPY 1997 COLORECTAL CANCER SCREENING 1997 FIT TEST 1997 FOBT 1997 SIGMOIDOSCOPY 1997 VIRTUAL COLONOSCOPY 1997 PNEUMOCOCCAL VACCINES (50+ years) (1 of 1 - PCV) 2002 RSV VACCINE (1 - Risk 50-74 years 1-dose series) 2002 ZOSTER VACCINES (1 of 2) 2002 OSTEOPOROSIS SCREENING INITI AL (ONE-TIME) 2017 INFLUENZA VACCINE (#1) 2024 COVID-19 VACCINE ( - 2024-2 6 season) 2025 TSH LEVEL 04/29/2026 04/29/2025, 12/02/2024 MAMMOGRAM 12/23/2026 12/23/2024, 12/23/2024 LIPID PANEL 12/02/2029 12/02/2024, 12/02/2024 SMOKING STATUS SCREENING (On ce After 26 Yrs) Completed 04/29/2025 HEPATITIS A VACCINES Aged Out No long er eligible based on patient's age to complete this topic HIB VACCINES Aged Out No longer eligi ble based on patient's age to complete this topic MENINGOCOCCAL VACCINES (ACWY) Aged Out No longer eligible based on patient's age to complete this topic MENINGOCOCCAL VACCINES (B) Aged Out N o longer eligible based on patient's age to complete this topic Medical Devices Not on file Procedures Procedure Name Priority Date/Time Associated Diagnosis Comments THYROID STIMULATING HORMONE (TSH) Routine 04/29/2025 2:05 PM EST Postablative hypothyroidism FREE T4 Routine 04/29/2025 2:05 PM EST Postablative hypothyroidism from Last 3 Months Results * Thyroid Stimulating Hormone (TSH) (04/29/2025 2:05 PM EST) TSH 4.18 0.40 - 5.90 uIU/mL 04/29/2025 6:50 PM EST [facility] Blood (Blood) Venipuncture / Unknown 04/29/2025 2:05 PM EST 04/29/2025 2:05 PM EST Travis Kee DO LAB BLOOD BKR ORDERABLES Final R esult [facility] [address] [place] [address] * T4, Free (04/29/2025 2:05 PM EST) T4, Free 1.2 0.9 - 1.8 ng/dL 04/29/2025 6:50 PM EST [facility] Blood (Blood) Venipuncture / Unknown 04/29/2025 2:05 PM EST 04/29/2025 2:05 PM EST us Travis Kee DO LAB BLOOD BKR ORDERABLES Final R esult [facility] [address] [place] [address] from Last 3 Months Insurance MEDICARE PPO BLUE REPLACEMENT MEDICARE PPO BLUE REPLACEMENT MEDICARE PPO BLUE REPLACEMENT MEDICARE PPO BLUE REPLACEMENT MEDICARE PPO BLUE REPLACEMENT MEDICARE PPO BLUE REPLACEMENT Care Teams Selling Underwriter Relationship Specialty Start Date End Date Scot Mckeon MD [address] [place] [place] [address] PCP - General Internal Medicine 04/29/25 Additional Source Comments The information contained in this document represents components of the legal health record. It is not the complete legal health record.[facility]
== END 2025-05-06 11:35 | disposition home or self-care (01) ==
LOC: HO.HSM 11:06
PROVIDERS: PCP Internal Medicine; Visit Provider Psychiatry & Neurology Neurology
DX: G43.909 Migraine, unspecified, not intractable, without status migrainosus (principal)
CPT/HCPCS: 99205

== ENCOUNTER → 2025-05-06 11:05 | Outpatient (BNVA) | payer MEDICARE, SELFPAY | PROVIDERS: PCP Internal Medicine; Visit Provider Psychiatry & Neurology Neurology | DX: G43.909 Migraine, unspecified, not intractable, without status migrainosus (principal); Z79.899 Other long term (current) drug therapy | CPT/HCPCS: 99202 ==